=== PATIENT | male | born 2000 | race Two or more races ===

== ENCOUNTER 2021-10-27 14:30 | Emergency (ER) | payer MEDICAID ==
[2021-10-27 14:46] VITALS: BP 140/77
--- NOTE | 2021-10-27 15:07 | XRAY Report ---
PROCEDURE: Finger(s) RT INDICATIONS: Trauma TECHNIQUE: AP hand, 2 views of the fifth finger(s) acquired. COMPARISON: None. FINDINGS: Bones: Mildly displaced transverse fracture of the distal fifth metacarpal. No dislocation. No suspi cious bony lesions. Soft tissues: No suspicious soft tissue calcifications. IMPRESSION: Fifth digit distal metacarpal fracture. Reviewed by: Chet Gaona MD on 10/27/2021 2:05 PM AB[facility] Approved by: Chet Gaona MD on 10/27/2021 2:05 PM ABRAHAM Station ID: [id number]
--- NOTE | 2021-10-27 21:42 | ED Physician Documentation ---
ED Addendum - Addendum Addendum: 10/27/21 21:42 Patient left without being seen, appears to have 5th metacarpal fracture on x- ray that was ordered from the waiting room. The nurses will contact him to have him come back for further evaluation and care.
== END 2021-10-27 17:10 | disposition left against medical advice (07) ==
LOC: ED 14:30
DX: Z53.21 Procedure and treatment not carried out due to patient leaving prior to being seen by health care provider (principal)

== ENCOUNTER 2021-10-28 09:34 | Emergency (ER) | payer MEDICAID ==
[2021-10-28 09:54] VITALS: BP 145/79
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
== END 2021-10-28 10:48 | disposition home or self-care (01) ==
LOC: ED 09:34
DX: S62.336A Displaced fracture of neck of fifth metacarpal bone, right hand, initial encounter for closed fracture (principal); W22.01XA Walked into wall, initial encounter; Y93.89 Activity, other specified
CPT/HCPCS: 29125; 99283; 99284

== ENCOUNTER 2021-11-08 09:15 | Outpatient (CLI) | payer MEDICAID ==
--- NOTE | 2021-11-08 11:55 | XRAY Report ---
PROCEDURE: Finger(s) RT INDICATIONS: 5TH FINGER PAIN TECHNIQUE: AP hand, 2 views of the fifth finger(s) acquired. COMPARISON: Right finger radiographs 10/28/2019 FINDINGS: Bones: Fifth digit distal metacarpal shaft fracture with palmar angulation. There is mild displaceme nt which could be increased compared to 10/27/2021. No intra-articular extension. No dislocations. No suspicious bony lesions. Soft tissues: No suspicious soft tissue calcifications. IMPRESSION: Fifth digit distal metacarpal fracture. Mild displacement may be increased. Reviewed by: Chet Gaona MD on 11/08/2021 11:54 AM PDT Approved by: Chet Gaona MD on 11/08/2021 11:54 AM PDT Station ID: [id number]
== END 2021-11-08 23:59 | disposition home or self-care (01) ==
LOC: DI.WOS 09:15
PROVIDERS: ATTEND Physician Assistant
DX: S62.326A Displaced fracture of shaft of fifth metacarpal bone, right hand, initial encounter for closed fracture (principal)

== ENCOUNTER 2021-11-25 09:42 | Outpatient (CLI) | payer MEDICAID ==
--- NOTE | 2021-11-25 11:02 | XRAY Report ---
PROCEDURE: Finger(s) RT INDICATIONS: 5TH FINGER FRACTURE TECHNIQUE: AP hand, 2 views of the fifth finger(s) acquired. COMPARISON: January 08, 2022. FINDINGS: BONES: Callus formation about the previous demonstrated fifth metacarpal fracture. The remaining visu alized osseous structures appear maintained. The carpal bones are normally aligned. SOFT TISSUES: No focal abnormality. IMPRESSION: 1.Ongoing healing of the fifth metacarpal fracture. Reviewed by: Bassam Dwyer MD on 11/25/2021 11:00 AM PDT Approved by: Bassam Dwyer MD on 11/25/2021 11:00 AM PDT Station ID: [id number]
== END 2021-11-25 23:59 | disposition home or self-care (01) ==
LOC: DI.WOS 09:42
PROVIDERS: ATTEND Physician Assistant
DX: S62.336D Displaced fracture of neck of fifth metacarpal bone, right hand, subsequent encounter for fracture with routine healing (principal)

== ENCOUNTER 2021-12-16 09:45 | Outpatient (CLI) | payer MEDICAID ==
--- NOTE | 2021-12-16 11:33 | XRAY Report ---
PROCEDURE: Finger(s) RT INDICATIONS: 5TH FINGER FRACTURE TECHNIQUE: AP hand, 2 views of the small finger(s) acquired. COMPARISON: 11/25/2021 FINDINGS: Bones: Interval progress in healing of a boxer's fracture of distal fifth metacarpal shaft with mild angulation. Callus formation is more mature. No suspicious bony lesions. Soft tissues: No suspicious soft tissue calcifications. IMPRESSION: Continued interval progress in healing fifth metacarpal shaft fracture. Reviewed by: Vinay Garrido MD on 12/16/2021 11:32 AM PDT Approved by: Vinay Garrido MD on 12/16/2021 11:32 AM PDT Station ID: [id number]
== END 2021-12-16 23:59 | disposition home or self-care (01) ==
LOC: DI.WOS 09:45
PROVIDERS: ATTEND Physician Assistant
DX: S62.336D Displaced fracture of neck of fifth metacarpal bone, right hand, subsequent encounter for fracture with routine healing (principal)